=== PATIENT | male | born 1975 | race African-American/Black ===

== ENCOUNTER 2016-09-12 14:11 | Emergency (ER) | payer MEDICAID, OTHER ==
[~2016-09-12] VITALS: Ht 182.9 cm; Wt 77.0 kg
[~2016-09-12 14:11] MED LIST: CITA10TA68 PO; DIPH25CA85 PO; GABA-531 PO; OXCA600T10 PO
[2016-09-12 14:21] VITALS: BP 100/80
== END 2016-09-12 15:53 | disposition left against medical advice (07) ==
LOC: EMS 14:12
DX: Z00.00 Encounter for general adult medical examination without abnormal findings (principal); M54.9 Dorsalgia, unspecified; Z87.891 Personal history of nicotine dependence
CPT/HCPCS: 99281

== ENCOUNTER 2016-10-15 04:23 | Emergency (ER) | payer OTHER ==
[~2016-10-15] VITALS: Ht 182.9 cm; Wt 86.4 kg
[2016-10-15 04:27] VITALS: BP 127/85
== END 2016-10-15 05:05 | disposition left against medical advice (07) ==
LOC: EMS 04:24
DX: F31.9 Bipolar disorder, unspecified (principal); F20.9 Schizophrenia, unspecified; F17.210 Nicotine dependence, cigarettes, uncomplicated; Z53.21 Procedure and treatment not carried out due to patient leaving prior to being seen by health care provider

== ENCOUNTER 2016-12-07 17:07 | Inpatient (IN) | payer MEDICAID ==
[~2016-12-07] VITALS: Ht 182.9 cm; Wt 80.3 kg
[2016-12-07 18:28] LABS: BASOPHILS % (AUTO) 0.1 % (0.0-2.0); EOSINOPHILS % (AUTO) 1.8 % (1.0-6.0); HEMATOCRIT 41.8 % (41-53); HEMOGLOBIN 13.6 g/dL (13.5-17.5); LYMPHOCYTES % (AUTO) 21.6 % (22.0-44.0); MEAN CORPUSCULAR HEMOGLOBIN 25.1 pg (26.0-34.0); MEAN CORPUSCULAR HGB CONC 32.5 G/dL (31.0-37.0); MEAN CORPUSCULAR VOLUME 77 fL (80-100); MONOCYTES # (AUTO) 0.5 K/uL (0.1-1.0); MONOCYTES % (AUTO) 4.8 % (2.0-9.0); NEUTROPHILS # (AUTO) 6.7 K/uL (1.8-7.7); NEUTROPHILS % (AUTO) 71.7 % (40.0-70.0); PLATELET COUNT (AUTO) 310 K/uL (150-450); RED BLOOD CELL COUNT(AUTO) 5.42 MIL/uL (4.50-5.90); RED CELL DISTRIBUTION WIDTH 14.5 % (11.5-14.5); WHITE BLOOD COUNT (AUTO) 9.4 K/uL (4.5-11.0)
[2016-12-07 19:13] LABS: ANION GAP 6 mmol/L (8-16); CALCIUM, TOTAL 8.7 mg/dL (8.8-10.5); CARBON DIOXIDE 27 mmol/L (22-29); CHLORIDE 101 mmol/L (98-107); CREATININE 0.82 mg/dL (0.60-1.30); GLOMERULAR FILTR. RATE CALC > 60 mL/min (>60); POTASSIUM 4.2 mmol/L (3.5-5.1); SODIUM SERUM 134 mmol/L (136-145); UREA NITROGEN, BLOOD 10 mg/dL (7-18)
[2016-12-07 19:14] LABS: RBC MORPHOLOGY COMMENT ABNORMAL RBC MORPH
[2016-12-07 19:19] LABS: ALANINE AMINOTRANSFERASE 24 U/L (12-78); ALBUMIN 3.2 g/dL (3.4-5.0); ASPARTATE AMINOTRANSFERASE 24 U/L (15-37); BILIRUBIN,TOTAL 0.5 mg/dL (0.1-1.0)
[2016-12-07] MEDS ORDERED: ZOLPIDEM TARTRATE 10 MG TABLET PO PRN (22:15)
[2016-12-08 00:23] VITALS: BP 126/63
[2016-12-08 08:15] VITALS: BP 136/78
[2016-12-08] MEDS: OLANZapine 5 MG RAPDIS TABLET PO SCH ×2 (10:15→16:42)
[2016-12-08] MEDS ORDERED: CloNIDine HCL 0.1 MG TABLET PO PRN (11:45)
[2016-12-08] MEDS ORDERED: ALBUTEROL SULFATE HFA 90 MCG/PUFF 8 GM INHALER IH PRN (11:45)
[2016-12-08] MEDS ORDERED: MAGNESIUM HYDROXIDE SUSPENSION 30 ML UDCUP PO PRN (11:45)
[2016-12-08] MEDS ORDERED: BENZOCAINE/MENTHOL LOZENGE MM PRN (11:45)
[2016-12-08] MEDS ORDERED: IBUPROFEN 600 MG TABLET PO PRN (11:45)
[2016-12-08] MEDS ORDERED: ACETAMINOPHEN 325 MG TABLET PO PRN (11:45)
[2016-12-08] MEDS ORDERED: LOPERAMIDE HCL 2 MG CAPSULE PO PRN (11:45)
[2016-12-08] MEDS ORDERED: ONDANSETRON HCL 4 MG TABLET PO PRN (11:45)
[2016-12-08] MEDS ORDERED: PETROLATUM,WHITE 71 GM JELLY TP PRN (11:45)
[2016-12-08] MEDS ORDERED: MAG HYDROX/AL HYDROX/SIMETH ES 30 ML SUSPENSION UDCUP PO PRN (11:45)
[2016-12-08] MEDS ORDERED: BACITRACIN 28.4 GM OINTMENT TP PRN (11:45)
[2016-12-08 16:48] VITALS: BP 104/60
[2016-12-09] MEDS: OLANZapine 5 MG RAPDIS TABLET PO SCH ×2 (08:49→16:12)
[2016-12-09 16:17] VITALS: BP 123/78
[2016-12-10 07:22] LABS: HEMOGLOBIN A1C 6.4 % (4.5-6.2)
[2016-12-10 08:04] LABS: ANION GAP 8 mmol/L (8-16); CALCIUM, TOTAL 8.7 mg/dL (8.8-10.5); CARBON DIOXIDE 30 mmol/L (22-29); CHLORIDE 101 mmol/L (98-107); CHOL/HDL RATIO 3.5 (4.2-7.3); GLOMERULAR FILTR. RATE CALC > 60 mL/min (>60); IRON, SERUM 45 mcg/dL (50-175); SODIUM SERUM 139 mmol/L (136-145); TOTAL IRON BINDING CAPACITY 299 mcg/dL (250-450); UREA NITROGEN, BLOOD 18 mg/dL (7-18)
[2016-12-10 08:15] VITALS: BP 114/72
[2016-12-10] MEDS: OLANZapine 5 MG RAPDIS TABLET PO SCH ×2 (09:00→16:24)
[2016-12-10] MEDS: HALOPERIDOL 5 MG TABLET PO PRN ×2 (14:20→18:37)
[2016-12-10] MEDS: LORazepam 2 MG TABLET PO PRN ×2 (14:27→17:46)
[2016-12-10 17:21] VITALS: BP 134/78
[2016-12-11 08:22] VITALS: BP 119/69
[2016-12-11] MEDS: OLANZapine 5 MG RAPDIS TABLET PO SCH ×2 (09:23→17:19)
[2016-12-11 16:30] VITALS: BP 100/60
[2016-12-11] MEDS: HALOPERIDOL 5 MG TABLET PO PRN (17:50)
[2016-12-11] MEDS: LORazepam 2 MG TABLET PO PRN (17:50)
[2016-12-12 08:22] VITALS: BP 131/74
[2016-12-12] MEDS: OLANZapine 5 MG RAPDIS TABLET PO SCH (09:29)
== END 2016-12-12 16:00 | disposition home or self-care (01) | DRG 750 ==
LOC: EMS 17:08 → 3EI 21:30
PROVIDERS: ADMIT Psychiatry & Neurology Child & Adolescent Psychiatry; ATTEND Psychiatry & Neurology Child & Adolescent Psychiatry
DX: F25.1 Schizoaffective disorder, depressive type (principal); E87.1 Hypo-osmolality and hyponatremia; R45.851 Suicidal ideations; E83.51 Hypocalcemia; F15.10 Other stimulant abuse, uncomplicated; F17.200 Nicotine dependence, unspecified, uncomplicated; G47.00 Insomnia, unspecified; G89.29 Other chronic pain; R73.9 Hyperglycemia, unspecified; R71.8 Other abnormality of red blood cells; Z71.6 Tobacco abuse counseling
CPT/HCPCS: 82306; 83036; 83540; 83550; 99285; G0480

== ENCOUNTER 2016-12-27 14:35 | Emergency (ER) | payer MEDICAID, OTHER ==
[~2016-12-27] VITALS: Ht 167.6 cm; Wt 77.0 kg
[2016-12-27 17:16] VITALS: BP 102/68
== END 2016-12-27 21:20 | disposition home or self-care (01) ==
LOC: EMS 14:36
DX: F31.9 Bipolar disorder, unspecified (principal); F20.9 Schizophrenia, unspecified; F15.90 Other stimulant use, unspecified, uncomplicated; F17.210 Nicotine dependence, cigarettes, uncomplicated; Z59.0 Homelessness
CPT/HCPCS: 99284

== ENCOUNTER 2019-01-23 18:01 | Emergency (ER) | payer MEDICAID, OTHER ==
[~2019-01-23] VITALS: Ht 180.3 cm; Wt 109.1 kg
[~2019-01-23 18:01] MED LIST changes: -CITA10TA68 PO; -DIPH25CA85 PO; -GABA-531 PO; +OXCA300T29 PO; -OXCA600T10 PO; +RISP1 PO
[2019-01-23 18:05] VITALS: BP 137/74
[2019-01-23] MEDS ORDERED: GABA-529 PO (18:13)
[2019-01-23] MEDS ORDERED: OXCA300T29 PO (18:13)
[2019-01-23] MEDS ORDERED: MELA3TAB66 PO (18:13)
[2019-01-23] MEDS ORDERED: RISP.5 PO (18:13)
[2019-01-23 19:12] LABS: AMPHET/METH SCREEN,URINE NEGATIVE (NEGATIVE); BARBITURATE SCREEN, URINE NEGATIVE (NEGATIVE); BENZODIAZEPINES SCREEN,URINE NEGATIVE (NEGATIVE); CANNABINOID SCREEN,URINE NEGATIVE (NEGATIVE); COCAINE SCREEN,URINE NEGATIVE (NEGATIVE); METHADONE SCREEN, URINE NEGATIVE (NEGATIVE); OPIATE SCREEN,URINE NEGATIVE (NEGATIVE)
[2019-01-23 19:18] LABS: PHENCYCLIDINE SCREEN,URINE NEGATIVE (NEGATIVE)
[2019-01-23 20:40] LABS: BASOPHILS % (AUTO) 0.3 % (0.0-2.0); EOSINOPHILS % (AUTO) 1.7 % (1.0-6.0); HEMATOCRIT 41.9 % (41-53); HEMOGLOBIN 13.3 g/dL (13.5-17.5); LYMPHOCYTES % (AUTO) 36.1 % (22.0-44.0); MEAN CORPUSCULAR HEMOGLOBIN 25.1 pg (26.0-34.0); MEAN CORPUSCULAR HGB CONC 31.6 G/dL (31.0-37.0); MEAN CORPUSCULAR VOLUME 79 fL (80-100); MONOCYTES # (AUTO) 0.8 K/uL (0.1-1.0); MONOCYTES % (AUTO) 9.3 % (2.0-9.0); NEUTROPHILS # (AUTO) 4.3 K/uL (1.8-7.7); NEUTROPHILS % (AUTO) 52.6 % (40.0-70.0); PLATELET COUNT (AUTO) 290 K/uL (150-450); RED BLOOD CELL COUNT(AUTO) 5.28 MIL/uL (4.50-5.90); RED CELL DISTRIBUTION WIDTH 14.3 % (11.5-14.5)
[2019-01-23 20:50] LABS: ANION GAP 6 mmol/L (8-16); CALCIUM, TOTAL 9.3 mg/dL (8.8-10.5); CARBON DIOXIDE 31 mmol/L (22-29); CHLORIDE 98 mmol/L (98-107); GLOMERULAR FILTR. RATE CALC > 60 mL/min (>60); GLUCOSE,RANDOM 274 mg/dL (70-110); POTASSIUM 4.4 mmol/L (3.5-5.1); SODIUM SERUM 135 mmol/L (136-145); UREA NITROGEN, BLOOD 11 mg/dL (7-18)
[2019-01-23 20:57] LABS: ALANINE AMINOTRANSFERASE 32 U/L (12-78); ALBUMIN 3.4 g/dL (3.4-5.0); ALKALINE PHOSPHATASE 79 U/L (46-116); ASPARTATE AMINOTRANSFERASE 24 U/L (15-37); BILIRUBIN,TOTAL 0.2 mg/dL (0.1-1.0); TOTAL PROTEIN, SERUM 7.1 g/dL (6.4-8.2)
== END 2019-01-23 22:00 | disposition left against medical advice (07) ==
LOC: EMS 18:01
DX: F32.9 Major depressive disorder, single episode, unspecified (principal); F17.210 Nicotine dependence, cigarettes, uncomplicated; F15.90 Other stimulant use, unspecified, uncomplicated; Z79.899 Other long term (current) drug therapy
CPT/HCPCS: 36415; 80053; 80307; 85025; 99284; G0480

== ENCOUNTER 2019-02-05 13:35 | Emergency (ER) | payer MEDICAID ==
[~2019-02-05] VITALS: Ht 180.3 cm; Wt 109.1 kg
[~2019-02-05 13:35] MED LIST changes: +GABA-529 PO; +MELA3TAB66 PO; +RISP.5 PO
[2019-02-05 15:26] LABS: INFLUENZA TYPE A NEGATIVE FOR TYPE A (NEGATIVE); INFLUENZA TYPE B NEGATIVE FOR TYPE B (NEGATIVE)
[2019-02-05] MEDS ORDERED: SODIUM CHLORIDE 0.9% 1,000 ML IV ONE (15:30)
[2019-02-05] MEDS ORDERED: FAMOTIDINE 10 MG/ML 2 ML VIAL IVP ONE (15:30)
[2019-02-05] MEDS ORDERED: ONDANSETRON HCL 4 MG/2 ML VIAL IVP ONE (15:30)
[2019-02-05 15:31] LABS: BASOPHILS % (AUTO) 0.3 % (0.0-2.0); EOSINOPHILS % (AUTO) 0.6 % (1.0-6.0); HEMATOCRIT 44.2 % (41-53); HEMOGLOBIN 14.4 g/dL (13.5-17.5); LYMPHOCYTES # (AUTO) 1.2 K/uL (1.0-4.8); LYMPHOCYTES % (AUTO) 11.2 % (22.0-44.0); MEAN CORPUSCULAR HEMOGLOBIN 25.5 pg (26.0-34.0); MEAN CORPUSCULAR HGB CONC 32.5 G/dL (31.0-37.0); MEAN CORPUSCULAR VOLUME 79 fL (80-100); MONOCYTES # (AUTO) 0.7 K/uL (0.1-1.0); MONOCYTES % (AUTO) 6.9 % (2.0-9.0); NEUTROPHILS # (AUTO) 8.7 K/uL (1.8-7.7); PLATELET COUNT (AUTO) 302 K/uL (150-450); RED BLOOD CELL COUNT(AUTO) 5.64 MIL/uL (4.50-5.90); RED CELL DISTRIBUTION WIDTH 13.8 % (11.5-14.5)
[2019-02-05 15:41] LABS: ANION GAP 8 mmol/L (8-16); CALCIUM, TOTAL 8.2 mg/dL (8.8-10.5); CARBON DIOXIDE 29 mmol/L (22-29); CHLORIDE 99 mmol/L (98-107); CREATININE 0.92 mg/dL (0.60-1.30); GLOMERULAR FILTR. RATE CALC > 60 mL/min (>60); GLUCOSE,RANDOM 165 mg/dL (70-110); POTASSIUM 4.1 mmol/L (3.5-5.1); SODIUM SERUM 136 mmol/L (136-145); UREA NITROGEN, BLOOD 8 mg/dL (7-18)
[2019-02-05 15:48] LABS: ALANINE AMINOTRANSFERASE 23 U/L (12-78); ALBUMIN 3.3 g/dL (3.4-5.0); ALKALINE PHOSPHATASE 88 U/L (46-116); ASPARTATE AMINOTRANSFERASE 16 U/L (15-37); BILIRUBIN,TOTAL 0.2 mg/dL (0.1-1.0); LIPASE 301 U/L (73-393); TOTAL PROTEIN, SERUM 7.2 g/dL (6.4-8.2)
[2019-02-05] MEDS ORDERED: KETOROLAC TROMETHAMINE 30 MG/ML VIAL IVP ONE (16:00)
[2019-02-05 17:42] VITALS: BP 121/64
== END 2019-02-05 17:48 | disposition home or self-care (01) ==
LOC: EMS 13:37
DX: J20.9 Acute bronchitis, unspecified (principal); R11.2 Nausea with vomiting, unspecified; R51 Headache; M79.10 Myalgia, unspecified site; F31.9 Bipolar disorder, unspecified; F20.9 Schizophrenia, unspecified; F17.210 Nicotine dependence, cigarettes, uncomplicated; F19.90 Other psychoactive substance use, unspecified, uncomplicated
CPT/HCPCS: 36415; 80053; 83690; 85025; 87804; 96361; 96374; 96375; 99283; J1885; J2405; J3490; J7030

== ENCOUNTER 2019-02-18 14:28 | Inpatient (IN) | payer MEDICAID ==
[~2019-02-18] VITALS: Ht 182.9 cm; Wt 106.6 kg
[2019-02-18] MEDS ORDERED: RISP2 PO (14:49)
[2019-02-18] MEDS ORDERED: OXCA300T29 PO (14:49)
[2019-02-18] MEDS ORDERED: HALOPERIDOL 5 MG TABLET PO ONE (15:00)
[2019-02-18 15:33] LABS: BASOPHILS % (AUTO) 0.3 % (0.0-2.0); EOSINOPHILS % (AUTO) 1.5 % (1.0-6.0); HEMATOCRIT 43.1 % (41-53); HEMOGLOBIN 13.7 g/dL (13.5-17.5); LYMPHOCYTES # (AUTO) 2.5 K/uL (1.0-4.8); LYMPHOCYTES % (AUTO) 26.1 % (22.0-44.0); MEAN CORPUSCULAR HGB CONC 31.9 G/dL (31.0-37.0); MEAN CORPUSCULAR VOLUME 79 fL (80-100); MONOCYTES # (AUTO) 0.9 K/uL (0.1-1.0); MONOCYTES % (AUTO) 9.1 % (2.0-9.0); PLATELET COUNT (AUTO) 294 K/uL (150-450); RED BLOOD CELL COUNT(AUTO) 5.49 MIL/uL (4.50-5.90); RED CELL DISTRIBUTION WIDTH 14.1 % (11.5-14.5)
[2019-02-18 15:52] LABS: ANION GAP 7 mmol/L (8-16); CALCIUM, TOTAL 8.7 mg/dL (8.8-10.5); CARBON DIOXIDE 28 mmol/L (22-29); CHLORIDE 97 mmol/L (98-107); GLOMERULAR FILTR. RATE CALC > 60 mL/min (>60); GLUCOSE,RANDOM 162 mg/dL (70-110); POTASSIUM 4.2 mmol/L (3.5-5.1); SODIUM SERUM 132 mmol/L (136-145); UREA NITROGEN, BLOOD 13 mg/dL (7-18)
[2019-02-18 15:56] LABS: AMPHET/METH SCREEN,URINE POSITIVE (NEGATIVE); BARBITURATE SCREEN, URINE NEGATIVE (NEGATIVE); BENZODIAZEPINES SCREEN,URINE NEGATIVE (NEGATIVE); CANNABINOID SCREEN,URINE NEGATIVE (NEGATIVE); COCAINE SCREEN,URINE NEGATIVE (NEGATIVE); METHADONE SCREEN, URINE NEGATIVE (NEGATIVE); OPIATE SCREEN,URINE NEGATIVE (NEGATIVE)
[2019-02-18 15:59] LABS: ALANINE AMINOTRANSFERASE 27 U/L (12-78); ALBUMIN 3.2 g/dL (3.4-5.0); ALKALINE PHOSPHATASE 94 U/L (46-116); ASPARTATE AMINOTRANSFERASE 21 U/L (15-37); BILIRUBIN,TOTAL 0.2 mg/dL (0.1-1.0); TOTAL PROTEIN, SERUM 6.9 g/dL (6.4-8.2)
[2019-02-18 16:00] LABS: PHENCYCLIDINE SCREEN,URINE NEGATIVE (NEGATIVE)
[2019-02-18] MEDS ORDERED: LORazepam 2 MG TABLET PO PRN (19:15)
[2019-02-18] MEDS ORDERED: HALOPERIDOL 5 MG TABLET PO PRN (19:15)
[2019-02-18] MEDS ORDERED: ZOLPIDEM TARTRATE 10 MG TABLET PO PRN (19:15)
[2019-02-18 20:33] VITALS: BP 117/78
[2019-02-18] MEDS ORDERED: INFLUENZA VIRUS VACCINE QVS 2019-20 (3YR+)/PF 60 MCG/0.5 ML SYRINGE IM ONE (21:15)
[2019-02-19 03:57] VITALS: BP 128/86
[2019-02-19 09:04] VITALS: BP 142/84
[2019-02-19] MEDS ORDERED: ALBUTEROL SULFATE HFA 90 MCG/PUFF 8 GM INHALER IH PRN (09:45)
[2019-02-19] MEDS ORDERED: MAG HYDROX/AL HYDROX/SIMETH ES 30 ML SUSPENSION UDCUP PO PRN (09:45)
[2019-02-19] MEDS ORDERED: BACITRACIN 28.4 GM OINTMENT TP PRN (09:45)
[2019-02-19] MEDS ORDERED: ONDANSETRON HCL 4 MG TABLET PO PRN (09:45)
[2019-02-19] MEDS ORDERED: CloNIDine HCL 0.1 MG TABLET PO PRN (09:45)
[2019-02-19] MEDS ORDERED: BENZOCAINE/MENTHOL LOZENGE MM PRN (09:45)
[2019-02-19] MEDS ORDERED: PETROLATUM,WHITE 28 GM JELLY TP PRN (09:45)
[2019-02-19] MEDS ORDERED: IBUPROFEN 600 MG TABLET PO PRN (09:45)
[2019-02-19] MEDS ORDERED: MAGNESIUM HYDROXIDE SUSPENSION 30 ML UDCUP PO PRN (09:45)
[2019-02-19] MEDS ORDERED: ACETAMINOPHEN 325 MG TABLET PO PRN (09:45)
[2019-02-19] MEDS ORDERED: LOPERAMIDE HCL 2 MG CAPSULE PO PRN (09:45)
[2019-02-19 16:30] VITALS: BP 130/81
[2019-02-20 06:51] LABS: CHOL/HDL RATIO 4.5 (4.2-7.3); FREE T4 (FREE THYROXINE) 0.86 ng/dL (0.76-1.46); THYROID STIMULATING HORMONE 2.06 uIU/mL (0.36-3.74)
[2019-02-20] MEDS: OMEPRAZOLE 20 MG CAPSULE PO SCH (09:22)
[2019-02-20] MEDS: RisperiDONE 1 MG TABLET PO SCH ×2 (09:22→17:00)
[2019-02-20] MEDS: GABAPENTIN 100 MG CAPSULE PO SCH (09:22)
[2019-02-20] MEDS: DOCUSATE SODIUM 100 MG CAPSULE PO SCH (09:22)
[2019-02-20 20:30] VITALS: BP 119/85
[2019-02-21 04:52] VITALS: BP 116/62
[2019-02-21] MEDS: RisperiDONE 1 MG TABLET PO SCH ×2 (08:53→18:00)
[2019-02-21] MEDS: GABAPENTIN 100 MG CAPSULE PO SCH (08:54)
[2019-02-21] MEDS: DOCUSATE SODIUM 100 MG CAPSULE PO SCH (08:54)
[2019-02-21] MEDS: OMEPRAZOLE 20 MG CAPSULE PO SCH (08:54)
[2019-02-21 11:49] VITALS: BP 124/64
[2019-02-21] MEDS ORDERED: RISP1 PO (12:31)
[2019-02-21] MEDS ORDERED: DOCU-275 PO (12:32)
[2019-02-21] MEDS ORDERED: OMEP20 PO (12:32)
== END 2019-02-21 18:43 | disposition home or self-care (01) | DRG 750 ==
LOC: EMS 14:30 → 3EI 19:45
PROVIDERS: ADMIT Psychiatry & Neurology Psychiatry; ATTEND Psychiatry & Neurology Psychiatry
DX: F25.9 Schizoaffective disorder, unspecified (principal); R45.851 Suicidal ideations; Z91.14 Patient's other noncompliance with medication regimen; F17.200 Nicotine dependence, unspecified, uncomplicated; F41.9 Anxiety disorder, unspecified; G47.00 Insomnia, unspecified; F19.10 Other psychoactive substance abuse, uncomplicated; Z71.89 Other specified counseling; Z56.0 Unemployment, unspecified
CPT/HCPCS: 84439; 84443; G0480

== ENCOUNTER 2021-02-15 14:44 | Inpatient (IN) | payer MEDICAID, OTHER ==
[~2021-02-15] VITALS: Ht 182.9 cm; Wt 100.7 kg
[~2021-02-15 14:44] MED LIST changes: +DOCU-270 PO; +GABA-1216 PO; -GABA-529 PO; -MELA3TAB66 PO; +OMEP20 PO; -OXCA300T29 PO; -RISP.5 PO; -RISP1 PO; +RISP1TAB48 PO
[2021-02-15] MEDS ORDERED: LORazepam 2 MG TABLET PO ONE ×2 (15:30→15:45)
[2021-02-15] MEDS ORDERED: HALOPERIDOL 5 MG TABLET PO ONE ×2 (15:30→15:45)
[2021-02-15 15:46] LABS: BASOPHILS % (AUTO) 0.4 % (0.0-2.0); EOSINOPHILS % (AUTO) 0 % (1.0-6.0); HEMATOCRIT 46.4 % (41-53); HEMOGLOBIN 14.7 g/dL (13.5-17.5); LYMPHOCYTES # (AUTO) 1.9 K/uL (1.0-4.8); LYMPHOCYTES % (AUTO) 16.1 % (22.0-44.0); MEAN CORPUSCULAR HEMOGLOBIN 24.5 pg (26.0-34.0); MEAN CORPUSCULAR HGB CONC 31.7 G/dL (31.0-37.0); MEAN CORPUSCULAR VOLUME 77 fL (80-100); MONOCYTES # (AUTO) 0.9 K/uL (0.1-1.0); MONOCYTES % (AUTO) 7.6 % (2.0-9.0); NEUTROPHILS # (AUTO) 9.1 K/uL (1.8-7.7); NEUTROPHILS % (AUTO) 75.9 % (40.0-70.0); PLATELET COUNT (AUTO) 352 K/uL (150-450); RED BLOOD CELL COUNT(AUTO) 6.01 MIL/uL (4.50-5.90); RED CELL DISTRIBUTION WIDTH 14.1 % (11.5-14.5)
[2021-02-15 15:56] LABS: ANION GAP 10 mmol/L (8-16); CALCIUM, TOTAL 9.7 mg/dL (8.8-10.5); CARBON DIOXIDE 30 mmol/L (22-29); CHLORIDE 98 mmol/L (98-107); CREATININE 1.11 mg/dL (0.60-1.30); GLOMERULAR FILTR. RATE CALC > 60 mL/min (>60); GLUCOSE,RANDOM 181 mg/dL (70-110); POTASSIUM 3.9 mmol/L (3.5-5.1); SODIUM SERUM 138 mmol/L (136-145); UREA NITROGEN, BLOOD 14 mg/dL (7-18)
[2021-02-15 16:02] LABS: ALANINE AMINOTRANSFERASE 26 U/L (12-78); ALBUMIN 4.4 g/dL (3.4-5.0); ALKALINE PHOSPHATASE 63 U/L (46-116); ASPARTATE AMINOTRANSFERASE 57 U/L (15-37); BILIRUBIN,TOTAL 0.4 mg/dL (0.1-1.0); TOTAL PROTEIN, SERUM 8.6 g/dL (6.4-8.2)
[2021-02-15 17:34] LABS: AMPHET/METH SCREEN,URINE POSITIVE (NEGATIVE); BARBITURATE SCREEN, URINE NEGATIVE (NEGATIVE); BENZODIAZEPINES SCREEN,URINE NEGATIVE (NEGATIVE); CANNABINOID SCREEN,URINE NEGATIVE (NEGATIVE); COCAINE SCREEN,URINE NEGATIVE (NEGATIVE); METHADONE SCREEN, URINE NEGATIVE (NEGATIVE); OPIATE SCREEN,URINE NEGATIVE (NEGATIVE); PHENCYCLIDINE SCREEN,URINE NEGATIVE (NEGATIVE)
[2021-02-15 19:21] LABS: COVID AG,FIA SOURCE NASOPHARYNGEAL
[2021-02-15] MEDS ORDERED: HALOPERIDOL 5 MG TABLET PO PRN (20:15)
[2021-02-16 01:49] VITALS: BP 139/99
[2021-02-16] MEDS: ZOLPIDEM TARTRATE 10 MG TABLET PO PRN (01:55)
[2021-02-16 08:06] VITALS: BP 156/85
[2021-02-16 08:39] LABS: CHOL/HDL RATIO 3.9 (4.2-7.3)
[2021-02-16] MEDS ORDERED: MAG HYDROX/AL HYDROX/SIMETH ES 30 ML SUSPENSION UDCUP PO PRN (10:45)
[2021-02-16] MEDS ORDERED: BACITRACIN 28 GM OINTMENT TP PRN (10:45)
[2021-02-16] MEDS ORDERED: LOPERAMIDE HCL 2 MG CAPSULE PO PRN (10:45)
[2021-02-16] MEDS ORDERED: MAGNESIUM HYDROXIDE SUSPENSION 30 ML UDCUP PO PRN (10:45)
[2021-02-16] MEDS ORDERED: ALBUTEROL SULFATE HFA 90 MCG/PUFF 8 GM INHALER IH PRN (10:45)
[2021-02-16] MEDS: ASCORBIC ACID 500 MG TABLET PO SCH (10:45)
[2021-02-16] MEDS ORDERED: BENZOCAINE/MENTHOL LOZENGE PO PRN (10:45)
[2021-02-16] MEDS ORDERED: CloNIDine HCL 0.1 MG TABLET PO PRN (10:45)
[2021-02-16] MEDS ORDERED: ACETAMINOPHEN 325 MG TABLET PO PRN (10:45)
[2021-02-16] MEDS ORDERED: GLUCAGON,HUMAN RECOMBINANT 1 MG VIAL IM PRN (10:45)
[2021-02-16] MEDS ORDERED: PETROLATUM,WHITE 28 GM JELLY TP PRN (10:45)
[2021-02-16] MEDS ORDERED: DOCUSATE SODIUM 100 MG CAPSULE PO PRN (10:45)
[2021-02-16] MEDS ORDERED: ONDANSETRON HCL 4 MG TABLET PO PRN (10:45)
[2021-02-16] MEDS: OMEGA-3/DHA/EPA/FISH OIL 1,000 MG CAPSULE PO SCH (11:58)
[2021-02-16] MEDS: INSULIN LISPRO 100 UNITS/ML SQ PRN ×3 (12:00→21:08)
[2021-02-16 13:45] LABS: GLUCOMETER DEV NAME(LOC) BV2S.; GLUCOSE,POINT OF CARE 202 MG/DL (70-110)
[2021-02-16] MEDS ORDERED: INFLUENZA VIRUS VACCINE QVS 2021-22 (6MO+)/PF 60 MCG/0.5 ML SYRINGE IM. ONE (15:00)
[2021-02-16 16:17] VITALS: BP 156/107
[2021-02-16] MEDS: OMEPRAZOLE 20 MG CAPSULE PO SCH (16:45)
[2021-02-16] MEDS: MetFORMIN HCL 500 MG TABLET PO SCH (16:47)
[2021-02-16] MEDS: OXcarbazepine 300 MG TABLET PO SCH (16:47)
[2021-02-16 17:20] LABS: GLUCOMETER DEV NAME(LOC) BV2S.; GLUCOSE,POINT OF CARE 222 MG/DL (70-110)
[2021-02-16 21:17] LABS: GLUCOMETER DEV NAME(LOC) BV2S.; GLUCOSE,POINT OF CARE 157 MG/DL (70-110)
[2021-02-17 00:36] VITALS: BP_SYST 18
[2021-02-17 06:23] LABS: GLUCOMETER DEV NAME(LOC) BV2S.; GLUCOSE,POINT OF CARE 186 MG/DL (70-110)
[2021-02-17] MEDS: INSULIN LISPRO 100 UNITS/ML SQ PRN ×2 (06:53→16:56)
[2021-02-17] MEDS: MetFORMIN HCL 500 MG TABLET PO SCH ×2 (06:53→16:37)
[2021-02-17] MEDS: ASCORBIC ACID 500 MG TABLET PO SCH ×2 (09:00→09:33)
[2021-02-17] MEDS: OXcarbazepine 300 MG TABLET PO SCH ×3 (09:00→16:37)
[2021-02-17] MEDS: OMEGA-3/DHA/EPA/FISH OIL 1,000 MG CAPSULE PO SCH ×2 (09:00→09:32)
[2021-02-17] MEDS: OMEPRAZOLE 20 MG CAPSULE PO SCH ×3 (09:00→16:37)
[2021-02-17 17:02] LABS: GLUCOMETER DEV NAME(LOC) BV2S.; GLUCOSE,POINT OF CARE 221 MG/DL (70-110)
[2021-02-18] MEDS ORDERED: LORazepam 2 MG/ML VIAL ONE (00:40)
[2021-02-18] MEDS ORDERED: DiphenhydrAMINE HCL 50 MG/ML VIAL ONE (00:40)
[2021-02-18] MEDS ORDERED: HALOPERIDOL LACTATE 5 MG/ML VIAL ONE (00:40)
[2021-02-18] MEDS ORDERED: HALOPERIDOL LACTATE 5 MG/ML VIAL IM ONE (00:45)
[2021-02-18] MEDS ORDERED: LORazepam 2 MG/ML VIAL IM ONE (00:45)
[2021-02-18] MEDS ORDERED: DiphenhydrAMINE HCL 50 MG/ML VIAL IM ONE (00:45)
[2021-02-18] MEDS: MetFORMIN HCL 500 MG TABLET PO SCH ×2 (06:55→16:27)
[2021-02-18 09:15] VITALS: BP 132/82
[2021-02-18] MEDS: ASCORBIC ACID 500 MG TABLET PO SCH (09:47)
[2021-02-18] MEDS: OXcarbazepine 300 MG TABLET PO SCH ×2 (09:47→16:27)
[2021-02-18] MEDS: OMEPRAZOLE 20 MG CAPSULE PO SCH ×2 (09:47→16:27)
[2021-02-18] MEDS: OMEGA-3/DHA/EPA/FISH OIL 1,000 MG CAPSULE PO SCH (09:47)
[2021-02-18 11:25] LABS: GLUCOMETER DEV NAME(LOC) BV2S.; GLUCOSE,POINT OF CARE 203 MG/DL (70-110)
[2021-02-18] MEDS: INSULIN LISPRO 100 UNITS/ML SQ PRN ×2 (11:45→16:34)
[2021-02-18 16:31] VITALS: BP 131/78
[2021-02-18 16:32] LABS: GLUCOMETER DEV NAME(LOC) BV2S.; GLUCOSE,POINT OF CARE 244 MG/DL (70-110)
[2021-02-18] MEDS: LORazepam 2 MG TABLET PO PRN (18:10)
[2021-02-18 18:11] VITALS: BP 120/90
[2021-02-18] MEDS: IBUPROFEN 600 MG TABLET PO PRN (18:11)
[2021-02-19 00:52] VITALS: BP 136/81
[2021-02-19 06:27] LABS: GLUCOMETER DEV NAME(LOC) BV2S.; GLUCOSE,POINT OF CARE 175 MG/DL (70-110)
[2021-02-19] MEDS: MetFORMIN HCL 500 MG TABLET PO SCH ×2 (06:30→16:21)
[2021-02-19] MEDS: INSULIN LISPRO 100 UNITS/ML SQ PRN ×3 (06:37→16:52)
[2021-02-19 08:26] VITALS: BP 131/71
[2021-02-19] MEDS: OMEPRAZOLE 20 MG CAPSULE PO SCH ×2 (08:51→16:21)
[2021-02-19] MEDS: OMEGA-3/DHA/EPA/FISH OIL 1,000 MG CAPSULE PO SCH (08:51)
[2021-02-19] MEDS: OXcarbazepine 300 MG TABLET PO SCH ×2 (08:51→16:22)
[2021-02-19] MEDS: ASCORBIC ACID 500 MG TABLET PO SCH (08:51)
[2021-02-19] MEDS: LORazepam 2 MG TABLET PO PRN ×2 (08:52→17:17)
[2021-02-19 11:29] LABS: GLUCOMETER DEV NAME(LOC) BV2S.; GLUCOSE,POINT OF CARE 214 MG/DL (70-110)
[2021-02-19 16:41] LABS: GLUCOMETER DEV NAME(LOC) BV2S.; GLUCOSE,POINT OF CARE 218 MG/DL (70-110)
[2021-02-19] MEDS: IBUPROFEN 600 MG TABLET PO PRN (17:17)
[2021-02-19 17:52] VITALS: BP 142/89
[2021-02-19 20:49] LABS: GLUCOMETER DEV NAME(LOC) BV2S.; GLUCOSE,POINT OF CARE 254 MG/DL (70-110)
[2021-02-19] MEDS: ZOLPIDEM TARTRATE 10 MG TABLET PO PRN (21:00)
[2021-02-20 07:03] VITALS: BP 123/62
[2021-02-20 07:07] LABS: GLUCOMETER DEV NAME(LOC) BV2S.; GLUCOSE,POINT OF CARE 234 MG/DL (70-110)
[2021-02-20] MEDS: MetFORMIN HCL 500 MG TABLET PO SCH ×2 (07:14→16:43)
[2021-02-20] MEDS: INSULIN LISPRO 100 UNITS/ML SQ PRN ×2 (07:19→16:58)
[2021-02-20] MEDS ORDERED: PNEUMOCOCCAL VACCINE POLYVALENT 0.5 ML VIAL [PPSV23] IM. ONE (07:30)
[2021-02-20 08:13] VITALS: BP 132/70
[2021-02-20 08:32] LABS: COVID AG,FIA SOURCE NASOPHARYNGEAL
[2021-02-20] MEDS: OXcarbazepine 300 MG TABLET PO SCH ×2 (09:11→16:43)
[2021-02-20] MEDS: OMEPRAZOLE 20 MG CAPSULE PO SCH ×2 (09:11→16:43)
[2021-02-20] MEDS: ASCORBIC ACID 500 MG TABLET PO SCH (09:11)
[2021-02-20] MEDS: OMEGA-3/DHA/EPA/FISH OIL 1,000 MG CAPSULE PO SCH (09:11)
[2021-02-20] MEDS: LORazepam 2 MG TABLET PO PRN (11:06)
[2021-02-20 11:57] LABS: GLUCOMETER DEV NAME(LOC) BV2S.; GLUCOSE,POINT OF CARE 213 MG/DL (70-110)
[2021-02-20 16:18] VITALS: BP 124/73
[2021-02-20] MEDS ORDERED: METF-1211 PO (16:46)
[2021-02-20] MEDS ORDERED: OXCA150T28 PO (16:48)
[2021-02-20] MEDS ORDERED: OXCA150T3 PO (16:48)
[2021-02-20 17:11] LABS: GLUCOMETER DEV NAME(LOC) BV2S.; GLUCOSE,POINT OF CARE 262 MG/DL (70-110)
== END 2021-02-20 17:30 | disposition home or self-care (01) | DRG 750 ==
LOC: EMS 14:46 → B2S 23:00
PROVIDERS: ADMIT Psychiatry & Neurology Psychiatry; ATTEND Psychiatry & Neurology Psychiatry
PROC: 3E0234Z Introduction of Serum, Toxoid and Vaccine into Muscle, Percutaneous Approach (ICD-10-PCS; principal; 2021-02-20)
DX: F25.9 Schizoaffective disorder, unspecified (principal); R45.851 Suicidal ideations; E11.9 Type 2 diabetes mellitus without complications; D72.829 Elevated white blood cell count, unspecified; F17.210 Nicotine dependence, cigarettes, uncomplicated; F19.10 Other psychoactive substance abuse, uncomplicated; K59.00 Constipation, unspecified; G47.00 Insomnia, unspecified; Z20.822 Contact with and (suspected) exposure to COVID-19; F32.A Depression, unspecified; F41.9 Anxiety disorder, unspecified; Z23 Encounter for immunization; Z79.899 Other long term (current) drug therapy
CPT/HCPCS: 80053; 80061; 82962; 85025; 90732; 99285; G0480; J1200; J1630; J2060

== ENCOUNTER 2021-07-08 15:23 | Emergency (ER) | payer MEDICAID, OTHER ==
[~2021-07-08] VITALS: Ht 182.9 cm; Wt 100.0 kg
[~2021-07-08 15:23] MED LIST changes: -DOCU-270 PO; -GABA-1216 PO; +METF-1211 PO; +OXCA150T28 PO; -RISP1TAB48 PO
[2021-07-08 20:47] VITALS: BP 118/77
== END 2021-07-08 21:13 | disposition home or self-care (01) ==
LOC: EMS 15:25
DX: F31.9 Bipolar disorder, unspecified (principal); R45.851 Suicidal ideations; F15.10 Other stimulant abuse, uncomplicated; F20.9 Schizophrenia, unspecified; F17.210 Nicotine dependence, cigarettes, uncomplicated
CPT/HCPCS: 99285; Z7502